=== PATIENT | male | born 2000 | race Caucasian/White ===

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

== ENCOUNTER 2020-07-12 00:27 | Emergency (ER) | payer OTHER ==
[~2020-07-12] VITALS: Ht 167.6 cm; Wt 95.3 kg
[2020-07-12 00:32] VITALS: BP 124/77
[2020-07-12] MEDS ORDERED: PHENAZOPYRIDINE 100 MG TAB PO ONE (00:35)
[2020-07-12] MEDS ORDERED: ONDANSETRON 4 MG ODT ONE (00:40)
[2020-07-12] MEDS ORDERED: LIDOCAINE MPF 1% 5 ML ONE (00:53)
[2020-07-12] MEDS ORDERED: cefTRIAXone 500 MG VIAL ONE (00:53)
[2020-07-12] MEDS ORDERED: cefTRIAXone 500 MG in LIDOCAINE MPF 1% 1 ML IM ONE (00:55)
[2020-07-12 01:03] VITALS: BP 124/77
== END 2020-07-12 01:04 | disposition home or self-care (01) ==
LOC: MED 00:27
DX: A64 Unspecified sexually transmitted disease (principal); J45.909 Unspecified asthma, uncomplicated; F12.10 Cannabis abuse, uncomplicated; Z79.899 Other long term (current) drug therapy
CPT/HCPCS: 36415; 81002; 87491; 96372; 99283; J0696; J2001; Q0162

== ENCOUNTER 2020-11-11 02:33 | Emergency (ER) | payer OTHER ==
[~2020-11-11] VITALS: Ht 172.7 cm; Wt 95.3 kg
[2020-11-11 02:38] VITALS: BP 136/75
--- NOTE | 2020-11-11 02:40 | NUR ---
To ED bed 12
--- NOTE | 2020-11-11 02:51 | NUR ---
X-Ray at bedside.
[2020-11-11 03:08] VITALS: BP 136/75
--- NOTE | 2020-11-11 03:10 | NUR ---
see complete assessment.
--- NOTE | 2020-11-11 03:15 | NUR ---
Dr. Montana with pt for MSE
[2020-11-11] MEDS ORDERED: KETOROLAC 30 MG/ML VIAL IM ONE (03:35)
[2020-11-11] MEDS ORDERED: diazePAM 5 MG TAB PO ONE (03:35)
--- NOTE | 2020-11-11 03:39 | NUR ---
sling applied to LUE by Emmanuel COLLINS. pt tolerated well.
--- NOTE | 2020-11-11 04:06 | NUR ---
states pain has decreased to 4/10 and tolerable.
[2020-11-11] MEDS ORDERED: NAPR-54 PO (04:44)
--- NOTE | 2020-11-11 04:57 | NUR ---
d/c with VSS. d/c education given. opportunity to ask questions given and answered. rx of naprosyn given.
== END 2020-11-11 04:57 | disposition home or self-care (01) ==
LOC: MED 02:33
DX: M77.8 Other enthesopathies, not elsewhere classified (principal); J45.909 Unspecified asthma, uncomplicated; Z79.899 Other long term (current) drug therapy; Z98.890 Other specified postprocedural states
CPT/HCPCS: 29125; 73090; 96372; 99283; J1885

== ENCOUNTER 2020-12-07 22:22 | Emergency (ER) | payer OTHER ==
[~2020-12-07] VITALS: Ht 175.3 cm; Wt 90.7 kg
[~2020-12-07 22:22] MED LIST changes: +NAPR-54 PO
[2020-12-07 22:30] VITALS: BP 143/81
[2020-12-07] MEDS ORDERED: KETOROLAC 30 MG/ML VIAL IVP ONE (23:10)
[2020-12-07] MEDS ORDERED: NACL 0.9% 1,000 ML IV ONE (23:10)
[2020-12-07 23:20] LABS: BASOPHILS # (AUTO) 0.1 K/uL (0.00-0.22); BASOPHILS % (AUTO) 1.4 % (0.0-2.0); EOSINOPHILS # (AUTO) 0.1 K/uL (0-0.4); EOSINOPHILS % (AUTO) 1.9 % (0.0-4.0); HEMATOCRIT 45.8 % (36-52); HEMOGLOBIN 15.8 g/dL (12.0-18.0); LYMPHOCYTES # (AUTO) 2.7 K/uL (2.0-11.5); LYMPHOCYTES % (AUTO) 40.8 % (20.5-51.1); MEAN CORPUSCULAR HEMOGLOBIN 30 pg (27-31); MEAN CORPUSCULAR HGB CONC 34 g/dL (33-37); MEAN CORPUSCULAR VOLUME 86.9 fL (80-94); MONOCYTES # (AUTO) 0.6 K/uL (0.8-1.0); MONOCYTES % (AUTO) 9.9 % (1.7-9.3); PLATELET COUNT (AUTO) 210 K/uL (140-450); RED BLOOD CELL COUNT(AUTO) 5.27 MIL/uL (4.20-6.10); RED CELL DISTRIBUTION WIDTH 13.4 % (11.6-13.7); WHITE BLOOD COUNT (AUTO) 6.5 K/uL (4.5-11.0)
[2020-12-07 23:36] LABS: ANION GAP 14.3 (8-16); CARBON DIOXIDE 23.2 mmol/L (21-32); CREATININE 1.1 mg/dL (0.6-1.3); POTASSIUM 3.5 mmol/L (3.5-5.1); TOTAL BILIRUBIN 0.4 mg/dL (0.0-1.0)
[2020-12-08 01:04] VITALS: BP 143/81
== END 2020-12-08 01:04 | disposition home or self-care (01) ==
LOC: MED 22:22
DX: M62.838 Other muscle spasm (principal); E86.0 Dehydration; J45.909 Unspecified asthma, uncomplicated; Z79.899 Other long term (current) drug therapy
CPT/HCPCS: 36415; 80053; 82553; 85025; 96374; 99283; J1885; J7030

== ENCOUNTER 2021-02-28 23:41 | Emergency (ER) | payer OTHER ==
[~2021-02-28] VITALS: Ht 175.3 cm; Wt 99.8 kg
[2021-02-28 23:56] VITALS: BP 127/74
--- NOTE | 2021-03-01 | NUR ---
TO LOBBY A/W BED AMBULATORY
--- NOTE | 2021-03-01 00:10 | NUR ---
SEEN AND EXAMINED BY EDITA WITH ORDERS, CARRIED OUT.
[2021-03-01] MEDS ORDERED: cefTRIAXone 500 MG in LIDOCAINE MPF 1% 1 ML IM ONE (01:05)
[2021-03-01] MEDS ORDERED: DOXY-487 PO (01:08)
[2021-03-01] MEDS ORDERED: cefTRIAXone 500 MG VIAL ONE (01:08)
[2021-03-01] MEDS ORDERED: LIDOCAINE MPF 1% 5 ML ONE (01:09)
--- NOTE | 2021-03-01 01:10 | NUR ---
MEDICATED PER ERMDS ORDER, TOLERATED WELL.
[2021-03-01 01:40] VITALS: BP 118/79
== END 2021-03-01 01:40 | disposition home or self-care (01) ==
LOC: MED 23:41
DX: R36.9 Urethral discharge, unspecified (principal); R30.0 Dysuria; J45.909 Unspecified asthma, uncomplicated; Z79.899 Other long term (current) drug therapy
CPT/HCPCS: 36415; 81002; 87491; 96372; 99283; J0696; J2001

== ENCOUNTER 2021-04-12 19:52 | Emergency (ER) | payer OTHER ==
[~2021-04-12] VITALS: Ht 175.3 cm; Wt 90.7 kg
[~2021-04-12 19:52] MED LIST changes: +DOXY-487 PO
[2021-04-12 19:59] VITALS: BP 128/95
--- NOTE | 2021-04-12 20:00 | NUR ---
to bed ambulatory
--- NOTE | 2021-04-12 20:10 | NUR ---
seen and examined by EDITA
--- NOTE | 2021-04-12 20:15 | NUR ---
21 YO M BIB SELF WITH C/C OF CHEST PAIN 8/10 PRESSURE LIKE NONRAD X2PM . PT STATES HE FELT SOB WHEN IT BEGAN AND WAS DRIVING. PT STATES HE DRANK ENERGY PILLS- TOTAL OF 4 IN TIME SPAN OF 3HRS. PT STATED HE ALSO SMOKE CONCENTRATED MARIJUANA. PT STATES HE HAS BEEN FEELING STRESSED LATELY. PT IS TEARFUL. ON PHOTOFLASH POWDER MIXER, BED LOCKED IN LOWEST POSITION. SIDE RAILS X2. HX:ASTHMA DENIES RX AND ALLER
--- NOTE | 2021-04-12 20:15 | NUR ---
LAB AT BEDSIDE.
[2021-04-12 20:26] LABS: BASOPHILS % (AUTO) 0.3 % (0.0-2.0); LYMPHOCYTES % (AUTO) 18.6 % (20.5-51.1); MEAN CORPUSCULAR HEMOGLOBIN 30 pg (27-31); MEAN CORPUSCULAR HGB CONC 35 g/dL (33-37); MEAN CORPUSCULAR VOLUME 86.1 fL (80-94); MONOCYTES # (AUTO) 0.7 K/uL (0.8-1.0); MONOCYTES % (AUTO) 6.4 % (1.7-9.3); NEUTROPHILS # (AUTO) 8.1 K/uL (1.8-7.7); NEUTROPHILS % (AUTO) 74.7 % (42.2-75.2); PLATELET COUNT (AUTO) 248 K/uL (140-450); RED BLOOD CELL COUNT(AUTO) 5.69 MIL/uL (4.20-6.10); RED CELL DISTRIBUTION WIDTH 13.7 % (11.6-13.7); WHITE BLOOD COUNT (AUTO) 10.9 K/uL (4.8-10.8)
[2021-04-12 20:45] LABS: ALBUMIN 4.8 g/dL (3.4-5.0); CREATININE 1.1 mg/dL (0.6-1.3); TOTAL BILIRUBIN 1.1 mg/dL (0.0-1.0)
[2021-04-12 22:20] LABS: BARBITURATE, URINE NEGATIVE ng/ml (NEG <=200); BENZODIAZEPINE, URINE NEGATIVE ng/mL (NEG <=200); CANNABINOID, URINE POSITIVE ng/mL (NEG <=50); COCAINE, URINE NEGATIVE ng/mL (NEG <=300); OPIATE, URINE NEGATIVE ng/mL (NEG <=2000); PHENCYCLIDINE SCREEN,URINE NEGATIVE ng/mL (NEG <=25)
[2021-04-12] MEDS ORDERED: LORazepam 1 MG TAB PO ONE (22:30)
[2021-04-12 23:05] VITALS: BP 144/75
--- NOTE | 2021-04-12 23:05 | NUR ---
Patient discharged with v/s stable. Written and verbal after care instructions given and explained. Patient verbalized understanding. Ambulatory with steady gait. All questions addressed prior to discharge. Advised to follow up with PMD.
== END 2021-04-12 23:05 | disposition home or self-care (01) ==
LOC: MED 19:52
DX: T43.611A Poisoning by caffeine, accidental (unintentional), initial encounter (principal); T78.1XXA Other adverse food reactions, not elsewhere classified, initial encounter; R00.2 Palpitations; J45.909 Unspecified asthma, uncomplicated; X58.XXXA Exposure to other specified factors, initial encounter; F41.9 Anxiety disorder, unspecified
CPT/HCPCS: 36415; 71045; 80053; 80305; 83690; 84484; 85025; 93005; 99285; Q0092

== ENCOUNTER 2021-08-25 21:01 | Emergency (ER) | payer OTHER ==
[~2021-08-25] VITALS: Ht 177.8 cm; Wt 95.3 kg
[2021-08-25 21:29] VITALS: BP 148/86
--- NOTE | 2021-08-25 21:53 | NUR ---
PT AMBULATED TO BED 11.
--- NOTE | 2021-08-25 22:21 | NUR ---
21 MY/O MALE BIB SELF, C/O DIFFICULTY BREATHING X2-3 WKS. PATIENT PRESENTS TO ED WITH HIARSE VOICE X2 DAYS AND A COMPLAINT OF PRODUCTIVE COUGH. PT STATES HE HAS NO PROBLEMS WITH EATING/DRINKING BUT TODAY HE HAD DIFFICULTY SWALLOWING HIS FOOD. DENIES N/V/D; SKIN IS PINK/WARM/DRY; AAOX4 WITH EVEN AND STEADY GAIT; HR EVEN AND REGULAR; VSS; PATIENT POSITIONED FOR COMFORT; HOB ELEVATED; BEDRAILS UP X1; BED DOWN. ER MD MADE AWARE OF PT STATUS. HX: ASTHMA NKDA MEDS: ALBUTEROL INH
--- NOTE | 2021-08-25 22:35 | NUR ---
ER AT BEDSIDE
[2021-08-25] MEDS ORDERED: ALBUTEROL SULFATE/IPRATROPIU 3 ML SOL IH ONE ×2 (22:39→22:40)
[2021-08-25] MEDS ORDERED: predniSONE 20 MG TAB PO ONE (22:40)
[2021-08-25] MEDS ORDERED: PRED20TA5 PO (23:30)
[2021-08-25] MEDS ORDERED: ALBU0.0912 INH (23:30)
[2021-08-25 23:32] VITALS: BP 148/86
--- NOTE | 2021-08-25 23:32 | NUR ---
Patient discharged with v/s stable. Written and verbal after care instructions given and explained. Patient alert, oriented and verbalized understanding of instructions. Ambulatory with steady gait. All questions addressed prior to discharge. ID band removed. Patient advised to follow up with PMD. Rx of Albuterol SUlfate and Prednisone given. Patient educated on indication of medication including possible reaction and side effects. Opportunity to ask questions provided and answered. vss, a/ox4, unlabored breathing, ambulatory, and calm demeanor.
== END 2021-08-25 23:32 | disposition home or self-care (01) ==
LOC: MED 21:01
DX: J45.901 Unspecified asthma with (acute) exacerbation (principal); Z79.899 Other long term (current) drug therapy
CPT/HCPCS: 94640; 99285; J7512

== ENCOUNTER 2022-05-04 20:56 | Emergency (ER) | payer OTHER ==
[~2022-05-04 20:56] MED LIST changes: +ALBU0.0912 INH; +PRED20TA5 PO
--- NOTE | 2022-05-04 21:10 | NUR ---
PATIENT CALLED FOR TRIAGE, NO RESPONSE PATIENT LEFT WITHOUT BEING SEEN BY DR. RODRÍGUEZ. NO FURTHER CARE PROVIDED FOR PATIENT.
--- NOTE | 2022-05-04 21:15 | NUR ---
CALLED FOR THE SECOND TIME, NO RESPONSE
--- NOTE | 2022-05-04 21:25 | NUR ---
CALLED FOR THE THIRD TIME, NO RESPONSE
== END 2022-05-04 21:10 | disposition left against medical advice (07) ==
LOC: MED 20:56
DX: M25.579 Pain in unspecified ankle and joints of unspecified foot (principal); Z53.21 Procedure and treatment not carried out due to patient leaving prior to being seen by health care provider

== ENCOUNTER 2022-05-06 10:23 | Emergency (ER) | payer OTHER ==
[~2022-05-06] VITALS: Ht 175.3 cm; Wt 99.8 kg
[2022-05-06 10:37] VITALS: BP 118/58
--- NOTE | 2022-05-06 11:30 | NUR ---
C/O LEFT ANKLE PAINX2 DAYS, PER PT HE TRIPPED 2DAYS AGO. WAS SEEN IN [place] AND IN THE ER 2 DAYS AGO AND LEFT WITHOUT BEING SEEN [facility] PMH: GABRIELLA
[2022-05-06] MEDS ORDERED: IBUP-2213 PO (12:46)
--- NOTE | 2022-05-06 13:00 | NUR ---
PT SEEN WALKING OUT OF LOBBY BY ADMITTING, PT LEFT W/O DC PAPERS Addendum: 05/06/22 at 1316 by [id number]
[2022-05-06] MEDS ORDERED: IBUPROFEN 600 MG TAB PO SCH (13:03)
--- NOTE | 2022-05-06 13:03 | NUR ---
Patient left without discharge paperwork.
--- NOTE | 2022-05-06 13:03 | NUR ---
AIR STIRRUP APPLIED TO L ANKLE. + CMS.
== END 2022-05-06 13:03 | disposition home or self-care (01) ==
LOC: MED 10:23
DX: S93.402A Sprain of unspecified ligament of left ankle, initial encounter (principal); Z79.899 Other long term (current) drug therapy; W22.8XXA Striking against or struck by other objects, initial encounter; Y93.89 Activity, other specified; Y92.89 Other specified places as the place of occurrence of the external cause; Y99.8 Other external cause status
CPT/HCPCS: 73610; 99283

== ENCOUNTER 2023-12-25 23:35 | Emergency (ER) | payer OTHER ==
[~2023-12-25] VITALS: Ht 172.7 cm; Wt 108.9 kg
[~2023-12-25 23:35] MED LIST changes: +IBUP-2213 PO; +NAPR-337 PO; -NAPR-54 PO
[2023-12-26 00:11] VITALS: BP 130/82; PULSE 103; RESP 20; TEMP 98; O2SAT 98
== END 2023-12-26 01:51 | disposition left against medical advice (07) ==
LOC: MED 23:35
DX: K13.79 Other lesions of oral mucosa (principal); Z53.21 Procedure and treatment not carried out due to patient leaving prior to being seen by health care provider